=== PATIENT | female | born 1965 | race African-American/Black ===

== ENCOUNTER 2017-11-21 15:59 | Observation (INO) ==
[2017-11-21] MEDS ORDERED: Morphine Inj 4 MG/ML Vial IV.PUSH ONE (17:27)
--- NOTE | 2017-11-21 17:48 | XR ---
EXAM DATE: 11/21/2017 5:44 PM EDT AGE/SEX: 51 years / Female INDICATIONS: . Chest pain. CLINICAL DATA: This is the patient's initial encounter. Patient reports that signs and symptoms have been present for 1 day and indicates a pain score of 10/10. MEDICAL/SURGICAL HISTORY: Hypertension. None. COMPARISON: No prior exams available for comparison. FINDINGS: Study is abnormal. Moderate bibasilar parenchymal changes evident worse on the right. Cardiac silhoue tte is appropriate. There is no pneumothorax. No congestive failure. The portion of the bony skeleton visualized is unremarkable. CONCLUSION: Bibasilar parenchymal changes worse on the right. There is no pneumothorax. Electronically signed by: Joseph Mata MD 11/21/2017 5:47 PM EDT
--- NOTE | 2017-11-21 18:23 | ED ---
HPI General Chief Complaint: Chest Pain Stated Complaint: Patient states chest pain and rt leg pain Time Seen by Provider: 11/21/17 17:15 Source: patient Mode of arrival: ambulatory Limitations: no limitations History of Present Illness HPI narrative: Patient is a 51-year-old female, past medical history significant for hypertension and lupus who presents with complaint of intermittent left-sided chest pain for the last month. She is unsure if she has shortness of breath at the same time. No nausea nor vomiting. No cough, fever, chills. She has recently had a right ankle surgery and has had right lower extremity edema since then. MD complaint: chest pain Complete Quality Measures for STEMI Alert Patients STEMI Alert: No Onset (ago): month(s) Duration: intermittent Onset: during rest Pain location: left chest Severity: moderate Quality: tightness, aching and sharp Pain radiation: none Relieving factors: nothing Exacerbating factors: nothing Context: recent surgery Associated symptoms: leg swelling Treatments prior to arrival chest pain: none Related Data Home Medications Medication Instructions Recorded Confirmed amlodipine [Norvasc] 5 mg PO DAILY 11/21/17 11/21/17 clonazepam [Klonopin] 1 mg PO BID 11/21/17 11/21/17 doxepin 100 mg PO HS 11/21/17 11/21/17 lisinopril 40 mg PO DAILY 11/21/17 11/21/17 oxycodone [OxyContin] 40 mg PO Q12H 11/21/17 11/21/17 oxycodone [Roxicodone] 10 mg PO Q4-6H PRN 11/21/17 11/21/17 pregabalin [Lyrica] 150 mg PO BID 11/21/17 11/21/17 quetiapine [Seroquel] 100 mg PO HS 11/21/17 11/21/17 sertraline [Zoloft] 100 mg PO DAILY 11/21/17 11/21/17 Allergies Allergy/AdvReac Type Severity Reaction Status Date / Time phenytoin [From Dilantin] Allergy Sedation Verified 11/21/17 16:14 Review of Systems ROS: all other systems reviewed are negative Constitutional Denies fever(s) Eyes Denies blurry vision Cardiovascular Denies dyspnea Respiratory Denies dyspnea Gastrointestinal Denies abdominal pain Musculoskeletal Denies back pain Neurologic Denies headache(s) [facility] Medical History Medical History Chest pain (Acute) FHx: cholecystectomy (Acute) HTN (hypertension) (Acute) Head injury (Acute) Hernia (Acute) Lupus (systemic lupus erythematosus) (Acute) Rheumatoid arthritis (Acute) Surgical History Surgical History H/O bilateral breast reduction surgery (Acute) H/O tubal ligation (Acute) History of ankle surgery (Acute) History of hernia surgery (Acute) Previous section (Acute) Social History Social History Substance History: No History of Abuse Second Hand Smoke Exposure: No Smoking Status: Never smoker How Often Do You Have a Drink Containing Alcohol: Never Substance Abuse Detail Marijuana: Substance Use Status: Active Immunization History Tetanus Immunization: <5 Years Hx Influenza Vaccine This Season: Yes Exam Narrative Exam Narrative: GENERAL: Well-appearing, anxious female in no acute distress SKIN: Focused skin assessment warm/dry. No rashes. Wound on right ankle/foot appears well and is well hearing. HEAD: Atraumatic. Normocephalic. EYES: Pupils equal and round. No scleral icterus. No injection or drainage. ENT: No nasal bleeding or discharge. Mucous membranes pink and moist. NECK: Trachea midline. No JVD. CARDIOVASCULAR: Regular rate and rhythm. No murmur appreciated. Intact and equal peripheral pulses. RESPIRATORY: No accessory muscle use. Clear to auscultation. Breath sounds equal bilaterally. GASTROINTESTINAL: Abdomen soft, non-tender, nondistended. Hepatic and splenic margins not palpable. MUSCULOSKELETAL: No obvious deformities. No clubbing. No cyanosis. No edema. NEUROLOGICAL: Awake and alert. No obvious cranial nerve deficits. Motor grossly within normal limits. Normal speech. PSYCHIATRIC: Appropriate mood and affect; insight and judgment normal. Course Initial Documented Vital Signs Pulse Oximetry 96 11/21/17 16:00 Last Documented Vital Signs Temperature 97.8 F 11/23/17 12:00 Pulse Rate 77 11/23/17 12:00 Respiratory Rate 16 11/23/17 14:42 Blood Pressure 136/77 11/23/17 12:00 Pulse Oximetry 100 11/23/17 12:00 Sign Out Sign Out Data: Patient Sign Out occurred on 11/21/17 at 19:17. Patient's care was discussed, and care was transferred from Breonna Patten MD to Fernando Montiel MD. Sign Out Comment: Chest pain x 1 month. EKG without acute ischemic changes. Imaging and labs pending. If unremarkable, plan for chest pain center. Last updated by Breonna Patten MD at 11/21/17 19:02 Post-Handoff Eval: Patient was signed out to me at change of shift by Dr. Patten. The patient presented with one-month history of chest pain. Initial EKG showed no evidence of ischemic changes. Labs are pending at the time of signout. Labs come back with no evidence of abnormal readings. She also had a CT angiogram that shows no evidence of pulmonary embolus. Ultrasound of left lower extremity showed no evidence of DVT. Given patient's presentation, she will be placed in the chest pain center which was the plan with Dr. Patten. Medical Decision Making MDM Narrative Medical decision making narrative: Patient is a 51-year-old female who presents with complaint of chest pain for the last month with right lower extremity edema. EKG is without acute ischemic changes of the patient appears well. Right lower extremity duplex, CTA of the chest, labs and x-ray ordered and pending at time of checkout. Medical Screen Exam Complete: Yes Emergency Medical Condition: Yes Differential Diagnosis Differential Diagnosis: Diagnosis includes but is not limited to acute coronary syndrome, pneumonia, musculoskeletal pain, pulmonary embolism. Medical Records Medical records reviewed: Yes I reviewed the patient's medical records. Lab Data Result diagrams: 11/22/17 08:08 11/21/17 18:00 Lab Results 11/21/17 11/21/17 11/21/17 Range/Units 18:00 20:00 20:16 WBC (4.0-11.0) th/mm3 RBC (4.00-5.30) mil/mm3 Hgb (11.6-15.3) gm/dL Hct (35.0-46.0) % MCV (80.0-100.0) fL MCH (27.0-34.0) pg MCHC (32.0-36.0) % RDW (11.6-17.2) % Plt Count (150-450) th/mm3 MPV (7.0-11.0) fL Neut % (Auto) (16.0-70.0) % Lymph % (Auto) (9.0-44.0) % [place] % (Auto) (0.0-8.0) % Eos % (Auto) (0.0-4.0) % Baso % (Auto) (0.0-2.0) % Neut # (Auto) (1.8-7.7) th/mm3 Lymph # (Auto) (1.0-4.8) th/mm3 [place] # (Auto) (0.0-0.9) th/mm3 Eos # (Auto) (0.0-0.4) th/mm3 Baso # (Auto) (0.0-0.2) th/mm3 WBC Differential Differential Comment Sodium 139 (136-145) meq/L Potassium 3.9 (3.5-5.1) meq/L Chloride 100 (98-107) meq/L Carbon Dioxide 30.7 (21.0-32.0) meq/L Anion Gap 8 (5-15) meq/L BUN 21 H (7-18) mg/dL Creatinine 0.75 (0.50-1.00) mg/dL Estimated GFR Greater than 89 (>89) mL/min POC Glucose 124 H (68-110) mg/dl Random Glucose 53 L (74-106) mg/dL Calcium 8.1 L (8.5-10.1) mg/dL Total Creatine Kinase 60 (26-192) U/L Troponin I Less than 0.02 L Less than 0.02 L (0.02-0.05) ng/mL 11/22/17 11/22/17 Range/Units 01:10 08:08 WBC 3.8 L (4.0-11.0) th/mm3 RBC 4.16 (4.00-5.30) mil/mm3 Hgb 9.2 L (11.6-15.3) gm/dL Hct 28.5 L (35.0-46.0) % MCV 68.4 L (80.0-100.0) fL MCH 22.1 L (27.0-34.0) pg MCHC 32.2 (32.0-36.0) % RDW 23.1 H (11.6-17.2) % Plt Count 309 (150-450) th/mm3 MPV 7.3 (7.0-11.0) fL Neut % (Auto) 65.0 (16.0-70.0) % Lymph % (Auto) 21.5 (9.0-44.0) % [place] % (Auto) 8.7 H (0.0-8.0) % Eos % (Auto) 3.8 (0.0-4.0) % Baso % (Auto) 1.0 (0.0-2.0) % Neut # (Auto) 2.5 (1.8-7.7) th/mm3 Lymph # (Auto) 0.8 L (1.0-4.8) th/mm3 [place] # (Auto) 0.3 (0.0-0.9) th/mm3 Eos # (Auto) 0.1 (0.0-0.4) th/mm3 Baso # (Auto) 0.0 (0.0-0.2) th/mm3 WBC Differential . Differential Comment Auto diff final Sodium (136-145) meq/L Potassium (3.5-5.1) meq/L Chloride (98-107) meq/L Carbon Dioxide (21.0-32.0) meq/L Anion Gap (5-15) meq/L BUN (7-18) mg/dL Creatinine (0.50-1.00) mg/dL Estimated GFR (>89) mL/min POC Glucose (68-110) mg/dl Random Glucose (74-106) mg/dL Calcium (8.5-10.1) mg/dL Total Creatine Kinase 56 (26-192) U/L Troponin I Less than 0.02 L (0.02-0.05) ng/mL Imaging Data Radiologist's impression: Chest CTA 11/21/17 17:27 CONCLUSION: 1. No pulmonary embolus. 2. Hyperdense material within the esophagus and the stomach. This should be correlated with ingested material. Venous Doppler Study 11/21/17 17:27 CONCLUSION: No DVT. Chest X-Ray 11/21/17 17:28 CONCLUSION: Bibasilar parenchymal changes worse on the right. There is no pneumothorax. Myocardial Perfusion Scan Nuc Med 11/23/17 08:57 CONCLUSION: Negative examination. ECG Data EKG Prior to Arrival: No Attestation: I personally reviewed and interpreted this ECG as follows: (EKG shows normal sinus rhythm at a rate of 75 bpm. There are no ST or T-wave changes.) Discharge Plan Discharge Disposition Patient Disposition: 30 Still Patient Discharge Condition Condition: Good Discharge Order Discharge Orders: Discharge Order (Routine); Ordered 11/23/17 Ordered By: Ana Serna Discharge Details Anticipated Discharge Date: 11/23/17 Diagnosis: Atypical chest pain, Hypertension Physicians Team ED Provider: Fernando Montiel Primary Care Provider: NON STAFF,PROVIDER Attending Provider: Steven Fair Status ED Status: Left Department Discharge Information Discharge Date/Time: 11/21/17 21:15
--- NOTE | 2017-11-21 19:08 | CT ---
EXAM DATE: 11/21/2017 7:01 PM EDT AGE/SEX: 51 years / Female INDICATIONS: Left sided chest pain for one month. CLINICAL DATA: This is the patient's initial encounter. Patient reports that signs and symptoms have been present for 1 day and indicates a pain score of 7/10. MEDICAL/SURGICAL HISTORY: Lupus. None. RADIATION DOSE: 9.76 CTDI (mGy) COMPARISON: No prior exams available for comparison. TECHNIQUE: Volumetric scanning was performed using a multi-row detector CT scanner during bolus infu mukul of 74 ml Omnipaque 350 (iohexol) nonionic water-soluble contrast as a single exam dose. The hill a was post processed with a variety of visualization algorithms including full volume maximum intensi ty projection and sliding thin slab reformation. Using automated exposure control and adjustment of t he mA and/or kV according to patient size, radiation dose was kept as low as reasonably achievable to obtain optimal diagnostic quality images. DICOM format image data is available electronically for r eview and comparison. FINDINGS: Pulmonary Arteries: No filling defects are seen in the pulmonary arteries out to the subsegmental ve ssels. The left and right pulmonary arteries are normal in diameter. Lung: There is a calcified granuloma in the superior lateral right upper lobe. Effusion: None. Mediastinum: No evidence of mediastinal or hilar adenopathy. Other: The axilla is unremarkable. There is high density material within the esophagus and the stoma ch. She correlate with ingested material. CONCLUSION: 1. No pulmonary embolus. 2. Hyperdense material within the esophagus and the stomach. This should be correlated with ingested material. Electronically signed by: Obi Solares MD 11/21/2017 7:06 PM EDT
--- NOTE | 2017-11-21 19:22 | US ---
EXAM DATE: 11/21/2017 7:19 PM EDT AGE/SEX: 51 years / Female INDICATIONS: Right leg pain and swelling. CLINICAL DATA: This is the patient's initial encounter. Patient reports that signs and symptoms have been present for 2 weeks and indicates a pain score of 8/10. MEDICAL/SURGICAL HISTORY: Lupus. Tubal ligation. section. Ankle surgery. COMPARISON: No prior exams available for comparison. TECHNIQUE: Venous ultrasound of both lower extremities was performed from the inguinal ligament to t he proximal calf. Real-time, color Doppler and spectral tracing, compression and augmentation techni ques were used. FINDINGS: Normal compression of the deep venous system from the inguinal region to the proximal calf . No echogenic clot is seen. Normal response of the venous system to augmentation and respiration. Th ere is superficial edema. CONCLUSION: No DVT. Electronically signed by: Obi Solares MD 11/21/2017 7:21 PM EDT
[2017-11-21 19:36] LABS: Anion Gap 8 meq/L (5-15); Blood Urea Nitrogen 21 mg/dL (7-18); Calcium 8.1 mg/dL (8.5-10.1); Carbon Dioxide 30.7 meq/L (21.0-32.0); Chloride 100 meq/L (98-107); Glomerular Filtration Rate Greater Than 89 mL/min (>89); Glucose,Random 53 mg/dL (74-106); Potassium 3.9 meq/L (3.5-5.1); Sodium 139 meq/L (136-145)
[2017-11-21] MEDS ORDERED: Sodium Chlor 0.9% Inj 500 ML IV.SIG SCH (20:00)
[2017-11-21 20:50] LABS: Creatine Kinase 60 U/L (26-192)
[2017-11-22 02:25] LABS: Creatine Kinase 56 U/L (26-192)
[2017-11-22 08:19] LABS: Eos # (Auto) 0.1 th/mm3 (0.0-0.4); Eos % (Auto) 3.8 % (0.0-4.0); Hematocrit 28.5 % (35.0-46.0); Hemoglobin 9.2 gm/dL (11.6-15.3); Lymph # (Auto) 0.8 th/mm3 (1.0-4.8); Lymph % (Auto) 21.5 % (9.0-44.0); Mean Corpuscular HGB Conc 32.2 % (32.0-36.0); Mean Corpuscular Hemoglobin 22.1 pg (27.0-34.0); Mean Corpuscular Volume 68.4 fL (80.0-100.0); Mean Platelet Volume 7.3 fL (7.0-11.0); Mono # (Auto) 0.3 th/mm3 (0.0-0.9); Mono % (Auto) 8.7 % (0.0-8.0); Neut # (Auto) 2.5 th/mm3 (1.8-7.7); Platelet Count 309 th/mm3 (150-450); Red Blood Count 4.16 mil/mm3 (4.00-5.30); Red Cell Distribution Width 23.1 % (11.6-17.2); White Blood Count 3.8 th/mm3 (4.0-11.0)
[2017-11-22] MEDS: Lisinopril 20 MG Tablet PO SCH (09:28)
[2017-11-22] MEDS: Sertraline 100 MG Tablet PO SCH (09:28)
[2017-11-22] MEDS: Pregabalin 75 MG Capsule PO SCH ×2 (09:28→21:29)
[2017-11-22] MEDS: amLODIPine 5 MG Tablet PO SCH (09:28)
[2017-11-22] MEDS: clonazePAM 1 MG Tablet PO SCH ×2 (11:11→21:28)
--- NOTE | 2017-11-22 12:54 | P.HPCA ---
History of Present Illness Primary Care Physician: PROVIDER NON STAFF Chief Complaint: Chest pain History of Present Illness: This is a 51-year-old female that presents to ED with a complaint of chest pain intermittently 1 month. States that the left side of her chest. She believes that stress brings on the discomfort. It is sharp discomfort that will last a few seconds but continues to recur. The time shortness of breath. No nausea or diaphoresis. Of note patient had recent ankle surgery secondary to fracture. PE was ruled out in the ED. Patient states she is a non-smoker. States there is family history of CAD. History of hypertension, anxiety, and repaired fracture of her right ankle. - Diagnosis (1) Chest pain (2) Hypertension (3) History of fracture of right ankle Review of Systems General: Patient denies fevers, chills, and recent travel. HEENT: Patient denies headache, sore throat, difficulty swallowing. Cardiovascular: Has the chest discomfort as mentioned above. Denies sensation of heart beating rapidly or irregularly. No syncope. Denies diaphoresis Respiratory: She has been short of breath at times. Denies inspirational chest discomfort. Denies coughing wheezing or hemoptysis. GI: Patient denies nausea, vomiting, diarrhea, abdominal pain, bloody stools. Musculoskeletal: Planes of right lower extremity pain. She had surgery on that ankle recently. Denies calf pain or edema. Neurovascular: Patient denies numbness, tingling, weakness in extremities. Denies headache. Endocrine: Denies polyuria and polydipsia. Hematologic: Denies easy bruising. Skin: Denies rash or itching. PMFSH - History History Provided By: Patient - Medical History Medical History: Medical History (Last Reviewed 11/21/17 @ 18:22 by Breonna Patten MD) Chest pain FHx: cholecystectomy HTN (hypertension) Head injury Hernia Lupus (systemic lupus erythematosus) Rheumatoid arthritis - Surgical History Surgical History: Surgical History (Last Reviewed 11/21/17 @ 18:22 by Breonna Patten MD) H/O bilateral breast reduction surgery H/O tubal ligation History of ankle surgery History of hernia surgery Previous section - Tobacco History Second Hand Smoke Exposure: No Tobacco Use In Past 30 Days: No Smoking Status: Never smoker - Alcohol History How Often Do You Have a Drink Containing Alcohol: Never - Substance Use History Substance History: No History of Abuse - Substance Use Type Marijuana Status: Active - Immunization History Tetanus Immunization: <5 Years Hx Influenza Vaccine This Season: Yes Medications and Allergies Active Medications: Active Medications Amlodipine Besylate (Norvasc) 5 mg PO DAILY [facility] Last Admin: 11/22/17 09:28 Dose: 5 mg Clonazepam (Klonopin) 1 mg PO BID [facility] Last Admin: 11/22/17 11:11 Dose: 1 mg Doxepin HCl (Sinequan) 100 mg PO [facility] Sodium Chloride (Ns Inj) 500 mls @ 0 mls/hr IV.SIG BOLUS [facility] Last Infusion: 11/21/17 21:41 Dose: Infused Lisinopril (Prinivil) 40 mg PO DAILY [facility] Last Admin: 11/22/17 09:28 Dose: 40 mg Ondansetron HCl (Zofran Inj) 4 mg IV.PUSH Q6H PRN PRN Reason: NAUSEA Oxycodone HCl (Roxicodone) 10 mg PO Q4H PRN PRN Reason: PAIN SCALE 6 TO 10 Last Admin: 11/22/17 09:28 Dose: 10 mg Pregabalin (Lyrica) 150 mg PO BID [facility] Last Admin: 11/22/17 09:28 Dose: 150 mg Quetiapine Fumarate (Seroquel) 100 mg PO HS [facility] Sertraline HCl (Zoloft) 100 mg PO DAILY [facility] Last Admin: 11/22/17 09:28 Dose: 100 mg Sodium Chloride (Ns Flush) 2 ml IV.FLUSH BID [facility] Last Admin: 11/22/17 10:48 Dose: 2 ml Sodium Chloride (Ns Flush) 2 ml IV.FLUSH PRN PRN PRN Reason: FLUSH AFTER USING IV ACCESS Allergies Allergy/AdvReac Type Severity Reaction Status Date / Time phenytoin [From Dilantin] Allergy Sedation Verified 11/21/17 16:14 Home Medications Medication Instructions Recorded Confirmed Type amlodipine [Norvasc] 5 mg PO DAILY 11/21/17 11/21/17 History clonazepam [Klonopin] 1 mg PO BID 11/21/17 11/21/17 History doxepin 100 mg PO HS 11/21/17 11/21/17 History lisinopril 40 mg PO DAILY 11/21/17 11/21/17 History oxycodone [OxyContin] 40 mg PO Q12H 11/21/17 11/21/17 History oxycodone [Roxicodone] 10 mg PO Q4-6H PRN 11/21/17 11/21/17 History pregabalin [Lyrica] 150 mg PO BID 11/21/17 11/21/17 History quetiapine [Seroquel] 100 mg PO HS 11/21/17 11/21/17 History sertraline [Zoloft] 100 mg PO DAILY 11/21/17 11/21/17 History oxycodone [OxyContin] 40 mg PO Q12H 11/22/17 11/22/17 History Exam Vital signs: Vital Signs 11/21/17 16:00 11/21/17 16:09 11/21/17 18:00 Temperature 97.6 F Pulse Rate 76 73 Respiratory Rate 18 20 Blood Pressure 143/82 H 143/84 H Pulse Oximetry 98 100 98 11/21/17 18:44 11/21/17 19:54 11/21/17 20:55 Temperature Pulse Rate 85 Respiratory Rate 9 L 16 Blood Pressure 158/67 H Pulse Oximetry 98 97 11/21/17 22:29 11/22/17 00:05 11/22/17 01:13 Temperature Pulse Rate 71 Respiratory Rate 16 Blood Pressure Pulse Oximetry 97 11/22/17 03:55 11/22/17 04:00 11/22/17 08:00 Temperature 97.8 F Pulse Rate 68 68 66 Respiratory Rate 17 16 Blood Pressure 122/90 163/88 H Pulse Oximetry 95 100 11/22/17 09:30 11/22/17 10:48 11/22/17 12:00 Temperature 98.0 F Pulse Rate 71 70 Respiratory Rate 18 16 Blood Pressure 126/93 H Pulse Oximetry 98 Intake & Output 11/21/17 11/22/17 11/22/17 18:59 06:59 18:59 Intake Total 500 / 500 Balance 500 / 500 Weight 75.296 kg Intake: IV 500 / 500 NS Inj 500 ML @ Wide Open IV. 500 / 500 SIG BOLUS RAUL Rx#:[id number] Other: Weight On Admission 75.296 kg Narrative: GENERAL: This is a well-nourished, well-developed patient, in no apparent distress. Patient speaks in clear complete sentences. Patient is pleasant. HEENT: Head is atraumatic and normocephalic. Neck is supple without lymphadenopathy and trachea is midline. No JVD or carotid bruits. CARDIOVASCULAR: Regular rate and rhythm without murmurs, gallops, or rubs. RESPIRATORY: Clear to auscultation. Breath sounds equal bilaterally. No wheezes , rales, or rhonchi. Chest wall is nontender. No use of accessory muscles. GASTROINTESTINAL: Abdomen is nontender, nondistended. Abdomen soft. No obvious pulsatile mass or bruit. No CVA tenderness. Strong femoral pulses bilaterally. Normal bowel sounds in all quadrants. MUSCULOSKELETAL: Patient is moving upper and lower extremities freely however range of motion not evaluated the patient stated her ankle still bothering her after surgery. There is some mild edema. No erythema. No warmth. Strong posterior tibial and dorsalis pedis pulses bilaterally. Well-healed scar at the ankle from prior surgery. No calf tenderness or edema, no Homans sign. Strong pulses in upper and lower extremities. NEUROLOGICAL: Patient is alert and oriented. Cranial nerves 2-12 are grossly intact. No focal deficits and speech is clear. SKIN: No rash and turgor is normal. Results 11/22/17 08:08 11/21/17 18:00 Cardiac Enzymes 11/21/17 11/21/17 11/22/17 Range/Units 18:00 20:16 01:10 Troponin I Less than 0.02 L Less than 0.02 L Less than 0.02 L (0.02-0.05) ng/mL CBC 11/22/17 Range/Units 08:08 WBC 3.8 L (4.0-11.0) th/mm3 RBC 4.16 (4.00-5.30) mil/mm3 Hgb 9.2 L (11.6-15.3) gm/dL Hct 28.5 L (35.0-46.0) % Plt Count 309 (150-450) th/mm3 Neut # (Auto) 2.5 (1.8-7.7) th/mm3 Lymph # (Auto) 0.8 L (1.0-4.8) th/mm3 Wallace # (Auto) 0.3 (0.0-0.9) th/mm3 Eos # (Auto) 0.1 (0.0-0.4) th/mm3 Baso # (Auto) 0.0 (0.0-0.2) th/mm3 Comprehensive Metabolic Panel 11/21/17 Range/Units 18:00 Sodium 139 (136-145) meq/L Potassium 3.9 (3.5-5.1) meq/L Chloride 100 (98-107) meq/L Carbon Dioxide 30.7 (21.0-32.0) meq/L BUN 21 H (7-18) mg/dL Creatinine 0.75 (0.50-1.00) mg/dL Calcium 8.1 L (8.5-10.1) mg/dL Intake and Output 11/21/17 11/22/17 11/22/17 22:59 06:59 14:59 Intake Total 500 / 500 Balance 500 / 500 Intake: IV 500 / 500 NS Inj 500 ML @ Wide Open IV. 500 / 500 SIG BOLUS RAUL Rx#:[id number] Other: Weight 75.296 kg Weight On Admission 75.296 kg EKG interpretations - EKG EKG shows: sinus rhythm (EKGs are sinus rhythm without significant ST segment depressions or elevations.) Caprini VTE Risk Assessment Caprini VTE Risk Assessment: Moderate/High Risk (score >= 2) Caprini Risk Assessment Model: Point Value = 1 Point Value = 2 Point Value = 3 Point Value = 5 Age 41-60 Minor surgery BMI > 25 kg/m2 Swollen legs Varicose veins or History of unexplained or recurrent spontaneous Oral contraceptives or hormone replacement Sepsis (< 1 month) Serious lung disease, including pneumonia (< 1 month) Abnormal pulmonary function Acute myocardial infarction Congestive heart failure (< 1 month) History of inflammatory bowel disease Medical patient at bed rest Age 61-74 Arthroscopic surgery Major open surgery (> 45 min) Laparoscopic surgery (> 45 min) Malignancy Confined to bed (> 72 hours) Immobilizing plaster cast Central venous access Age >= 75 History of VTE Family history of VTE Factor V Leiden Prothrombin 29242H Lupus anticoagulant Anticardiolipin antibodies Elevated serum homocysteine Heparin-induced thrombocytopenia Other congenital or acquired thrombophilia Stroke (< 1 month) Elective arthroplasty Hip, pelvis, or leg fracture Acute spinal cord injury (< 1 month) Prophylaxis Regimen: Total Risk Factor Score Risk Level Prophylaxis Regimen 0-1 Low Early ambulation 2 Moderate Order ONE of the following: *Sequential Compression Device (SCD) *Heparin 5000 units SQ BID 3-4 Higher Order ONE of the following medications: *Heparin 5000 units SQ TID *Enoxaparin/Lovenox 40 mg SQ daily (WT < 150 kg, CrCl > 30 mL/min) *Enoxaparin/Lovenox 30 mg SQ daily (WT < 150 kg, CrCl > 10-29 mL/min) *Enoxaparin/Lovenox 30 mg SQ BID (WT < 150 kg, CrCl > 30 mL/min) AND/OR *Sequential Compression Device (SCD) 5 or more Highest Order ONE of the following medications: *Heparin 5000 units SQ TID (Preferred with Epidurals) *Enoxaparin/Lovenox 40 mg SQ daily (WT < 150 kg, CrCl > 30 mL/min) *Enoxaparin/Lovenox 30 mg SQ daily (WT < 150 kg, CrCl > 10-29 mL/min) *Enoxaparin/Lovenox 30 mg SQ BID (WT < 150 kg, CrCl > 30 mL/min) AND *Sequential Compression Device (SCD) Assessment and Plan - Assessment (1) Chest pain Code(s): R07.9 - Chest pain, unspecified Status: Acute (2) Hypertension Code(s): I10 - Essential (primary) hypertension Status: Acute (3) History of fracture of right ankle Code(s): Z87.81 - Personal history of (healed) traumatic fracture Status: Acute - Plan * Chest pain: Patient has had serial cardiac enzymes and EKGs for ruling out purposes. She was seen by Dr. Lind of cardiology in the chest pain center. Patient is to have a Lexiscan. Apparently patient forgot that she was supposed to be n.p.o. and drank some of her family members coffee and with her eating for breakfast just prior to being transported to nuclear medicine. Subsequently patient will need to spend evening in the chest pain center and will have a Lexiscan in the morning. She will be discharged home if her stress test is nonischemic with instructions to follow-up with PCP. A CT a was obtained in the ED that ruled out PE however it showed a hyperdense material within the esophagus and stomach could have been related to ingested material. This was discussed with the patient. She states that time she does have difficulty swallowing solids and has had this issue for several months. She is to follow-up with GI after discharge. Return to ED for interval issues. * Hypertension: Continue medication. * Recent repair of fractured right ankle: Follow-up with orthopedist. Patient is stable at this time. She is agreeable to this plan. H&P: Quality - VTE Deep Vein Thrombosis/Pulmonary Embolism Present on Admission: No
--- NOTE | 2017-11-22 16:42 | ECG ---
Date Performed: 11/22/2017 Time Performed: 03:58:51 PTAGE: 51 years EKG: Sinus rhythm POSSIBLE LEFT ATRIAL ENLARGEMENT BORDERLINE ECG Since PREVIOUS TRACING , no significant change noted PREVIOUS TRACIN11/21/2017 23.25 DOCTOR: Paula Lind Interpretating Date/Time 11/22/2017 16:40:21
--- NOTE | 2017-11-22 20:33 | ECG ---
Date Performed: 11/21/2017 Time Performed: 23:25:32 PTAGE: 51 years EKG: Sinus rhythm POSSIBLE LEFT ATRIAL ENLARGEMENT BORDERLINE ECG Since PREVIOUS TRACING , no significant change noted PREVIOUS TRACIN11/21/2017 20.47 DOCTOR: Paula Lind Interpretating Date/Time 11/22/2017 20:31:41
--- NOTE | 2017-11-22 20:34 | ECG ---
Date Performed: 11/21/2017 Time Performed: 20:47:01 PTAGE: 51 years EKG: Sinus rhythm POSSIBLE LEFT ATRIAL ENLARGEMENT BORDERLINE ECG Since PREVIOUS TRACING , no significant change noted PREVIOUS TRACIN11/21/2017 16.18 DOCTOR: Paula Lind Interpretating Date/Time 11/22/2017 20:32:54
--- NOTE | 2017-11-22 20:42 | ECG ---
Date Performed: 11/21/2017 Time Performed: 16:18:36 PTAGE: 51 years EKG: Sinus rhythm LEFT ATRIAL ENLARGEMENT ABNORMAL ECG NO PREVIOUS TRACING DOCTOR: Paula Lind Interpretating Date/Time 11/22/2017 20:41:07
[2017-11-22] MEDS ORDERED: QUEtiapine 100 MG Tablet PO SCH (21:00)
[2017-11-23 07:48] VITALS: RESP 16
[2017-11-23] MEDS: clonazePAM 1 MG Tablet PO SCH (08:02)
[2017-11-23] MEDS: Pregabalin 75 MG Capsule PO SCH (08:02)
[2017-11-23] MEDS: Lisinopril 20 MG Tablet PO SCH (08:02)
[2017-11-23] MEDS: Sertraline 100 MG Tablet PO SCH (08:02)
[2017-11-23] MEDS: amLODIPine 5 MG Tablet PO SCH (08:03)
[2017-11-23] MEDS ORDERED: Regadenoson Inj 0.4 MG/5 ML Syringe IV.PUSH ONE (09:15)
--- NOTE | 2017-11-23 11:26 | NM ---
EXAM DATE: 11/23/2017 10:57 AM EDT AGE/SEX: 51 years / Female INDICATIONS:Angina. . Left chest pain. CLINICAL DATA: This is the patient's initial encounter. Patient reports that signs and symptoms have been present for 1 month and indicates a pain score of 5/10. MEDICAL/SURGICAL HISTORY: Hypertension. Lupus. Tubal ligation. Cholecystectomy. COMPARISON: No prior exams available for comparison. DOSE: 8.8 mCi Tc 99m Myoview at rest 27.2 mCi [id number] at stress 0.4 mg Lexiscan STRESS SYMPTOMS: Dyspnea and weird feeling. EJECTION FRACTION: > 70 % TECHNIQUE: The patient underwent pharmacologic stress with infusion of prescribed dose. Continuous ECG tracing was monitored during stress. Gated SPECT imaging was performed after stress and conventi onal SPECT imaging was performed at rest. The examination was performed on a SPECT/CT scanner, both attenuation and non-corrected datasets were reviewed. FINDINGS: Distribution: The maximum perfused segment at stress is in the septal wall. Perfusion Study: The pattern of perfusion at stress is within normal limits. Gated Study: There are intact wall motion and wall thickening without hypokinetic or dyskinetic segm ents. The ejection fraction is calculated at > 70%. RISK CATEGORY: Low (<1% Annual Motality Rate) CONCLUSION: Negative examination. Electronically signed by: Obi Small MD 11/23/2017 11:25 AM EDT
[2017-11-23 12:35] VITALS: BP 136/77; PULSE 77; TEMP 97.8; O2SAT 100
--- NOTE | 2017-11-23 15:43 | TR ---
Date Performed: 11/23/2017 Time Performed: 09:12:15 DOCTOR: Steven Fair DRUG LIST: CLINICAL HISTORY: REASON FOR TEST: REASON FOR ENDING: OBSERVATION: CONCLUSION: COMMENTS: Lexiscan stress test was performed under standard four minute protocol. Radionuclide was injected one minute prior to ending the test. No electrocardiographic abormalities were present t o suggest ischemia. Nuclear imaging and interpretation are pending.
== END 2017-11-23 14:35 | disposition home or self-care (01) ==
LOC: NEPE 15:59 → NEDA 15:59 → NEPGCP 21:09
PROVIDERS: ADMIT Internal Medicine Cardiovascular Disease; ATTEND Internal Medicine Cardiovascular Disease